=== PATIENT | female | born 1995 | race Caucasian/White ===

== ENCOUNTER 2016-11-15 14:13 | Emergency (ER) | payer BC, OTHER ==
[~2016-11-15] VITALS: Ht 172.7 cm; Wt 90.7 kg
--- NOTE | 2016-11-15 14:35 | ED Fall/Injury ---
General Chief Complaint: Trauma-Non Activation Stated Complaint: FALL/HEAD INJURY Nursing Triage Note: patient reports getting tripped up by dog and falling back on stairs. patient unsure of LOC. patient reports R ankle pain and back pain. denies head or neck pain Source: patient Exam Limitations: no limitations History of Present Illness Time seen by provider: 14:20 Initial Comments Here with complaint of head injury, back pain and right ankle pain after falling when walking down the steps. She states she was coming down the stairs and her dog hit the back of her legs and she fell backwards and hit her head and upper back between the shoulder blades. She also apparently rolled her right ankle. She is unsure she was knocked unconscious but then thinks that she may have been. She did have nausea. EMS did give her 4 mg of Zofran IV in route which did help the nausea. Denies vomiting or seizures. The father states that he found her drooling a little bit and laying on her side. Patient denies any neck pain or other injury. Occurred: just prior to arrival Severity: moderate Injuries/Pain Location: head, back, lower extremity Context: tripped Loss of Consciousness: unsure Associated Symptoms (Fall): No Abdominal Pain, No Chest Pain, Headache, Nausea/ Vomiting, No Seizures, No Shortness of Air, No Vision Changes Allergies and Home Medications Allergies Coded Allergies: No Known Drug Allergies (Unverified , 11/15/16) Home Medications No Active Prescriptions or Reported Meds Constitutional: see HPI, No chills, No fever Eyes: No Symptoms Reported Ears, Nose, Mouth, Throat: no symptoms reported Respiratory: no symptoms reported Cardiovascular: no symptoms reported Musculoskeletal: see HPI, back pain Skin: No lesions, No rash Psychiatric/Neurological: See HPI, Headache Past Cxnggbe-Gsrtxa-Fwyqux Hx Patient Social History Alcohol Use: Denies Use Recreational Drug Use: No Smoking Status: Never a Smoker Recent Foreign Travel: No Contact w/Someone Who Travel: No Recent Infectious Disease Expo: No Recent Hopitalizations: No Immunizations Up To Date Tetanus Booster (TDap): Less than 5yrs Surgeries HX Surgeries: No Respiratory Hx Respiratory Disorders: No Cardiovascular Hx Cardiac Disorders: Yes Cardiac Disorders: Heart Murmur Neurological Hx Neurological Disorders: Yes Neurological Disorders: Headaches /Migraines Genitourinary Hx Genitourinary Disorders: No Gastrointestinal Hx Gastrointestinal Disorders: No Musculoskeletal Hx Musculoskeletal Disorders: Yes Musculoskeletal Disorders: Scoliosis Endocrine Hx Endocrine Disorders: No HEENT HX ENT Disorders: No Cancer Hx Cancer: No Psychosocial Hx Psychiatric Problems: No Reviewed Nursing Assessment Reviewed/Agree w Nursing PMH: Yes Family Medical History Significant Family History: Heart Disease, Cancer, Diabetes Physical Exam Vital Signs Vital Sign - Last 12Hours 11/15/16 14:15 Temp 98.8 Pulse 86 Resp 20 B/P (MAP) 135/98 Pulse Ox 100 O2 Delivery Room Air Capillary Refill : Less Than 3 Seconds General Appearance: WD/WN, no apparent distress HEENT: PERRL/EOMI, TMs normal, pharynx normal Neck: full range of motion, supple Cardiovascular: regular rate, rhythm, no murmur Respiratory: lungs clear, normal breath sounds Gastrointestinal: non tender, soft Back: normal inspection, no CVA tenderness, no vertebral tenderness, other ( tenderness just lateral to the mid thoracic spine at approximately T6) Extremities: normal range of motion, no pedal edema, other (mild tenderness to the lateral aspect of the right ankle with retained range of motion) Neurologic/Psychiatric: alert, normal mood/affect, oriented x 3 Skin: normal color, warm/dry Geno Coma Score Best Eye Response: (4) Open Spontaneously Best Verbal Response: (5) Oriented Best Motor Response: (6) Obeys Commands Progress/Results/Core Measures Results/Orders My Orders Orders - CHANDRAKANT CHAVEZ MD Ct Head Wo (11/15/16 14:19) Ankle, Right, 3 Views (11/15/16 14:19) T-Spine 3v-Ap, Lat, Swimmers (11/15/16 14:19) Vital Signs/I&O Vital Sign - Last 12Hours 11/15/16 14:15 Temp 98.8 Pulse 86 Resp 20 B/P (MAP) 135/98 Pulse Ox 100 O2 Delivery Room Air Blood Pressure Mean: 110 Progress Note : Progress Note Seen and evaluated. IV by EMS. CT head and x-ray of the right ankle and thoracic spine ordered. Patient declined pain medicine. Monitor patient. 1535 : No acute findings. Discharged home with return precautions. Patient verbalize understanding instructions and agreement with plan. Diagnostic Imaging Diagonstic Imaging: CT Plain Films/CT/US/NM/MRI: head Comments VIA [facility]. [place], [place] NAME: LILIYA ALICEA V [facility] REC#: [id number] PT STATUS: REG ER : 1995 PHYSICIAN: CHANDRAKANT CHAVEZ MD ADMIT DATE: 11/15/16/ER Draft Date of Exam:11/15/16 CT HEAD WO CLINICAL INDICATION: Patient fell and struck back of head on concrete. Patient has headache and right eye is fuzzy. EXAM: Axial CT scan of the brain performed without IV contrast. COMPARISON: None. FINDINGS: There is no evidence of acute cerebral infarct, intracranial hemorrhage, or gross mass effect. There is normal [place]-white matter distinction. The brain parenchymal volume appears appropriate for patient's age. There is no significant midline shift or herniation. There is no evidence of hydrocephalus. The basal cisterns are unremarkable. The skull, extracranial soft tissue, and orbits are unremarkable. The paranasal sinuses are unremarkable. IMPRESSION: Unremarkable CT scan of the brain. Dictated on workstation # [id number] Dict: 11/15/16 1437 Trans: 11/15/16 1442 [id number] Interpreted by: MARTINE ALVAREZ MD Electronically signed by: Diagonstic Imaging: Xray Plain Films/CT/US/NM/MRI: ankle Diagonstic Imaging: Xray Plain Films/CT/US/NM/MRI: other (thoracic spine) Comments NAME: LILIYA ALICEA V [facility] REC#: [id number] PT STATUS: REG ER : 1995 PHYSICIAN: CHANDRAKANT CHAVEZ MD ADMIT DATE: 11/15/16/ER Draft Date of Exam:11/15/16 T-SPINE 3V-AP, LAT, SWIMMERS INDICATION: Fell, hitting back while landing on concrete. Back pain. FINDINGS: Frontal, lateral, swimmer 's views of the thoracic spine demonstrate normal ossification. No fracture or subluxation is present. Disc spaces are of normal width. IMPRESSION: Normal thoracic spine. Dictated on workstation # [id number] Dict: 11/15/16 1449 Trans: 11/15/16 1515 ANUSHA [id number] Interpreted by: DANILO SIMON MD Electronically signed by: Departure Impression Impression: Primary Impression: Concussion Qualified Codes: S06.0X9A - Concussion with loss of consciousness of unspecified duration, initial encounter Additional Impressions: Contusion of thoracic wall Qualified Codes: S20.221A - Contusion of right back wall of thorax, initial encounter Right ankle sprain Qualified Codes: S93.401A - Sprain of unspecified ligament of right ankle, initial encounter Disposition: HOME, SELF-CARE Condition: Stable Departure-Patient Inst. Decision time for Depature: 15:25 Referrals: NO,LOCAL PHYSICIAN (PCP/Family) Primary Care Physician Patient Instructions: Concussion, Adult (DC) Add. Discharge Instructions: All discharge instructions reviewed with patient and/or family. Voiced understanding. You should rest tonight. You should stay at a place that has a person that can stay with you. You may take ibuprofen 800 mg every 8 hours as needed for pain. You may take Tylenol 1000 mg every 8 hours as needed for pain. Drink plenty of fluids. Off work today and tomorrow. Return for worse pain, fever, vomiting , vision or balance problems, weakness, coordination problems or other concerns as needed. Follow-up with your DrGabrielle in a few days for recheck as needed. Scripts No Active Prescriptions or Reported Meds Work/School Note: Work Release Form Date Seen in the Emergency Department: Nov 15, 2016 Return to Work: Nov 17, 2016 Restrictions: No Restrictions CHANDRAKANT CHAVEZ MD Nov 15, 2016 14:35
--- NOTE | 2016-11-15 14:43 | Diagnostic Imaging Report ---
CLINICAL INDICATION: Patient fell and struck back of head on concrete. Patient has headache and right eye is fuzzy. EXAM: Axial CT scan of the brain performed without IV contrast. COMPARISON: None. FINDINGS: There is no evidence of acute cerebral infarct, intracranial hemorrhage, or gross mass effect. There is normal [place]-white matter distinction. The brain parenchymal volume appears appropriate for patient's age. There is no significant midline shift or herniation. There is no evidence of hydrocephalus. The basal cisterns are unremarkable. The skull, extracranial soft tissue, and orbits are unremarkable. The paranasal sinuses are unremarkable. IMPRESSION: Unremarkable CT scan of the brain. Dictated by: Dictated on workstation # [id number]
--- NOTE | 2016-11-15 15:16 | Diagnostic Imaging Report ---
INDICATION: Fell, hitting back while landing on concrete. Back pain. FINDINGS: Frontal, lateral, swimmer 's views of the thoracic spine demonstrate normal ossification. No fracture or subluxation is present. Disc spaces are of normal width. IMPRESSION: Normal thoracic spine. Dictated by: Dictated on workstation # [id number]
--- NOTE | 2016-11-15 15:21 | Diagnostic Imaging Report ---
INDICATION: Patient was sliding her dog out the back, fell, right ankle pain. FINDINGS: Three views of the right ankle demonstrate normal ossification. No fracture, dislocation or joint effusion is present. IMPRESSION: Negative right ankle. Dictated by: Dictated on workstation # [id number]
[2016-11-15 15:43] VITALS: BP 128/90
--- OUTSIDE RECORDS SUMMARY | 2016-12-18 14:31 | XMS REPORT | Continuity of Care Document ---
Author Author [facility] Organization [facility] Address Unknown Phone Unavailable Care Team Providers Care Motion Picture Set Grip Name Role Phone Taz Pisano PCP [phone] Source Comments Some departments are not documenting in the electronic medical record. If you do not see the information that you expected, contact Release of Information in the Health Information Management department at [phone] for further assistance in locating additional records.[facility] Active Allergies and Adverse Reactions No Known Allergies Current Medications Prescription Sig. Disp. Refills Start End Date Status Date buPROPion (WELLBUTRIN) 75 Take 75 mg by mouth twice Active mg tablet daily. Active Problems Problem Noted Date Ureteropelvic junction obstruction 11/27/2015 UPJ (ureteropelvic junction) obstruction 10/15/2015 Social History Tobacco Use Types Packs/Day Years Used Date Never Smoker Smokeless Tobacco: Never Used Alcohol Use Drinks/Week oz/Week Comments No 0 Standard 0.0 drinks or equivalent Last Filed Vital Signs Vital Sign Reading Time Taken Blood Pressure 133/86 02/10/2016 2:23 PM CDT Pulse 59 02/10/2016 2:23 PM CDT Temperature 36.7 C (98 F) 11/28/2015 11:13 AM CDT Respiratory Rate - - Height 1.702 m (5' 7") 02/10/2016 2:23 PM CDT Weight 87.726 kg (193 lb 6.4 oz) 02/10/2016 2:23 PM CDT Body Mass Index 30.28 02/10/2016 2:23 PM CDT Oxygen Saturation 97% 11/28/2015 11:13 AM CDT Plan of Care Health Maintenance Due Date Last Done Comments Physical (Comprehensive) 2003 Exam Hpv Vaccines (#1) 2007 Pertussis Vaccine 2007 Tetanus Vaccine 2013 Influenza Vaccine 04/14/2017 Results from Last 3 Months Not on file
--- OUTSIDE RECORDS SUMMARY | 2016-12-18 14:31 | XMS REPORT | Continuity of Care Document ---
Author Author [facility] Organization [facility] Address Unknown Phone Unavailable Allergies Active Description Code Type Severity Reaction Onset Reported/Identified Relationship to Patient Clinical Status Yes No Known Drug Allergies [id number] Drug Allergy Unknown N/ A 11/15/2016 Medications Problems Date Dx Coded Attending Type Code Diagnosis Diagnosed By 02/19/2015 EBONI NICHOLE MD Ot 782.0 SKIN SENSATION DISTURB 02/19/2015 EBONI NICHOLE MD Ot 786.50 CHEST PAIN NOS 02/19/2015 EBONI NICHOLE MD Ot 786.59 CHEST PAIN NEC 11/15/2016 CHANDRAKANT CHAVEZ MD, Ot S06.0X0A CONCUSSION WITHOUT LOSS OF CONSCIOUSNESS 11/15/2016 CHANDRAKANT CHAVEZ MD, Ot S09.90XA UNSPECIFIED INJURY OF HEAD, INITIAL ENCO 11/15/2016 CHANDRAKANT CHAVEZ MD Ot S20.221A CONTUSION OF RIGHT BACK WALL OF THORAX, 11/15/2016 CHANDRAKANT CHAVEZ MD Ot S93.401A SPRAIN OF UNSPECIFIED LIGAMENT OF RIGHT 11/15/2016 CHANDRAKANT CHAVEZ MD Ot W10.9XXA FALL (ON) (FROM) UNSPECIFIED STAIRS AND 11/15/2016 CHANDRAKANT CHAVEZ MD Ot Y92.[address] IN UNSP NON-INSTITUT ( PRIVATE 11/15/2016 CHANDRAKANT CHAVEZ MD Ot Y99.8 OTHER EXTERNAL CAUSE STATUS 11/16/2016 CHANDRAKANT CHAVEZ MD, Ot S06.0X0A CONCUSSION WITHOUT LOSS OF CONSCIOUSNESS 11/16/2016 CHANDRAKANT CHAVEZ MD Ot S09.90XA UNSPECIFIED INJURY OF HEAD, INITIAL ENCO 11/16/2016 CHANDRAKANT CHAVEZ MD Ot S20.221A CONTUSION OF RIGHT BACK WALL OF THORAX, 11/16/2016 CHANDRAKANT CHAVEZ MD Ot S93.401A SPRAIN OF UNSPECIFIED LIGAMENT OF RIGHT 11/16/2016 CHANDRAKANT CHAVEZ MD Ot W10.9XXA FALL (ON) (FROM) UNSPECIFIED STAIRS AND 11/16/2016 CHANDRAKANT CHAVEZ MD Ot Y92.[address] IN UNSP NON-INSTITUT ( PRIVATE 11/16/2016 CHANDRAKANT CHAVEZ MD Ot Y99.8 OTHER EXTERNAL CAUSE STATUS 11/17/2016 CHANDRAKANT CHAVEZ MD Ot F17.210 NICOTINE DEPENDENCE, CIGARETTES, UNCOMPL 11/17/2016 CHANDRAKANT CHAVEZ MD Ot G44.309 POST-TRAUMATIC HEADACHE, UNSPECIFIED , NO 11/17/2016 CHANDRAKANT CHAVEZ MD Ot M54.2 CERVICALGIA 11/18/2016 CHANDRAKANT CHAVEZ MD Ot G44.309 POST-TRAUMATIC HEADACHE, UNSPECIFIED , NO 11/18/2016 CHANDRAKANT CHAVEZ MD Ot M54.2 CERVICALGIA 11/18/2016 CHANDRAKANT CHAVEZ MD Ot F17.210 NICOTINE DEPENDENCE, CIGARETTES, UNCOMPL 11/18/2016 CHANDRAKANT CHAVEZ MD Ot G44.309 POST-TRAUMATIC HEADACHE, UNSPECIFIED , NO 11/18/2016 CHANDRAKANT CHAVEZ MD Ot M54.2 CERVICALGIA Procedures Results Encounters ACCT No. Visit Date/Time Discharge Status Pt. Type Provider Facility Loc./Unit Complaint [id number] 11/17/2016 08:15:00 2016 10:13:00 DIS Emergency CHANDRAKANT CHAVEZ MD [facility] ER FALL/HEAD INJURY [id number] 11/15/2016 14:15:00 2016 15:43:00 DIS Emergency CHANDRAKANT CHAVEZ MD [facility] ER FALL/HEAD INJURY [id number] 02/19/2015 19:55:00 2014 22:45:00 DIS Emergency EBONI NICHOLE MD [facility] ER CP
== END 2016-11-15 15:43 | disposition home or self-care (01) ==
LOC: EDUNIT# 14:13 → ER 14:15
DX: S06.0X0A Concussion without loss of consciousness, initial encounter (principal); S93.401A Sprain of unspecified ligament of right ankle, initial encounter; S20.221A Contusion of right back wall of thorax, initial encounter; W10.9XXA Fall (on) (from) unspecified stairs and steps, initial encounter; Y92.009 Unspecified place in unspecified non-institutional (private) residence as the place of occurrence of the external cause; Y99.8 Other external cause status
CPT/HCPCS: 70450; 72072; 73610; 99283

== ENCOUNTER 2016-11-17 08:13 | Emergency (ER) | payer BC, OTHER ==
[~2016-11-17] VITALS: Ht 172.7 cm; Wt 90.7 kg
--- NOTE | 2016-11-17 08:42 | ED Head Injury ---
General Chief Complaint: Head/Cervical Problems Stated Complaint: FALL/HEAD INJURY Source: patient Exam Limitations: no limitations History of Present Illness Time seen by provider: 08:29 Initial Comments Here with report of persistent headache after fall and head injury 2 days ago. Seen here at that time and had CT scan done. No acute findings at that time. States was doing a little better yesterday but this morning woke up with right- sided neck pain and felt blurriness in the right eye. She has been taking Tylenol and ibuprofen and that has helped. She reports eating and drinking okay. Denies balance problems. Pain on the right side of the neck is from behind the right ear down to the right shoulder. Denies weakness. Occurred: other (2 days ago) Severity: moderate Location: occipital, parietal Method of Injury: fell Loss of Consciousness: unsure Associated Systoms: No Chest Pain, No Fever/Chills, No Nausea/Vomiting, No Shortness of Air, No Weakness Allergies and Home Medications Allergies Coded Allergies: No Known Drug Allergies (Unverified , 11/15/16) Home Medications No Active Prescriptions or Reported Meds Constitutional: see HPI, No chills, No fever Eyes: No Symptoms Reported Ears, Nose, Mouth, Throat: no symptoms reported Respiratory: no symptoms reported Cardiovascular: no symptoms reported Gastrointestinal: no symptoms reported Genitourinary: no symptoms reported Musculoskeletal: see HPI, muscle pain, neck pain Skin: no symptoms reported Psychiatric/Neurological: Headache, Denies Weakness Hematologic/Lymphatic: No Symptoms Reported All Other Systems Reviewed Negative Unless Noted: Yes Past Misvkde-Ejwonp-Nneoof Hx Patient Social History Alcohol Use: Denies Use Recreational Drug Use: No Smoking Status: Current Everyday Smoker Recent Foreign Travel: No Contact w/Someone Who Travel: No Recent Hopitalizations: No Immunizations Up To Date Tetanus Booster (TDap): Less than 5yrs Surgeries HX Surgeries: No Respiratory Hx Respiratory Disorders: No Cardiovascular Hx Cardiac Disorders: Yes Cardiac Disorders: Heart Murmur Neurological Hx Neurological Disorders: Yes Neurological Disorders: Headaches /Migraines Genitourinary Hx Genitourinary Disorders: No Gastrointestinal Hx Gastrointestinal Disorders: No Musculoskeletal Hx Musculoskeletal Disorders: Yes Musculoskeletal Disorders: Scoliosis Endocrine Hx Endocrine Disorders: No HEENT HX ENT Disorders: No Cancer Hx Cancer: No Psychosocial Hx Psychiatric Problems: No Reviewed Nursing Assessment Reviewed/Agree w Nursing PMH: Yes Family Medical History Significant Family History: Heart Disease, Cancer, Diabetes Physical Exam Vital Signs Vital Sign - Last 12Hours 11/17/16 08:17 Temp 98.0 Pulse 56 Resp 18 B/P (MAP) 123/81 Pulse Ox 100 O2 Delivery Room Air Capillary Refill : General Appearance: WD/WN, no apparent distress HEENT: PERRL/EOMI, TMs normal, pharynx normal Neck: full range of motion, supple, tender lateral (right-sided) Cardiovascular: regular rate, rhythm, no murmur Respiratory: lungs clear, normal breath sounds Gastrointestinal: non tender, soft Back: normal inspection, no vertebral tenderness Extremities: non-tender, normal inspection Psychiatric: alert, oriented x 3 Crainal Nerves: normal hearing, normal speech, PERRL Motor/Sensory: no motor deficit, no sensory deficit Skin: normal color, warm/dry Moriah Coma Score Best Eye Response: (4) Open Spontaneously Best Verbal Response: (5) Oriented Best Motor Response: (6) Obeys Commands Progress/Results/Core Measures Results/Orders My Orders Orders - CHANDRAKANT CHAVEZ MD Ct Head/Cervical Spine Wo (11/17/16 08:27) Vital Signs/I&O Vital Sign - Last 12Hours 11/17/16 08:17 Temp 98.0 Pulse 56 Resp 18 B/P (MAP) 123/81 Pulse Ox 100 O2 Delivery Room Air Progress Note : Progress Note Seen and evaluated. CT head and neck ordered. Patient declined pain medicine currently and states she would like to see if her Tylenol we'll work first. Monitor patient. Diagnostic Imaging Diagonstic Imaging: CT Plain Films/CT/US/NM/MRI: c-spine, head Comments NAME: LILIYA ALICEA V [facility] REC#: [id number] PT STATUS: REG ER : 1995 PHYSICIAN: CHANDRAKANT CHAVEZ MD ADMIT DATE: 11/17/16/ER Draft Date of Exam:11/17/16 CT HEAD/CERVICAL SPINE WO CLINICAL INDICATION: Patient is status post fall, hitting head on concrete. Patient is having right eye vision issues and headache. EXAM: Head CT without IV contrast. Axial CT scan of the cervical spine with sagittal and coronal reformations. COMPARISON: Head CT without IV contrast dated 11/15/2016. FINDINGS: Head CT: There is no evidence of acute cerebral infarct, intracranial hemorrhage, or gross mass effect. There is normal [place]-white matter distinction. The brain parenchymal volume appears appropriate for patient's age. There is no significant midline shift or herniation. There is no evidence of hydrocephalus. The basal cisterns are unremarkable. The skull, extracranial soft tissue, and orbits are unremarkable. The paranasal sinuses are unremarkable. Cervical spine: There is no evidence of acute cervical spine fracture or dislocation. Intervertebral disc heights and vertebral body heights are well maintained. There is small left paracentral disc spurs which cause no significant central spinal canal or neural foramen narrowing. There is no significant prevertebral soft tissue swelling. Lung apices are clear. IMPRESSION: 1: Unremarkable CT scan of the brain. 2: There is no evidence of acute cervical spine fracture or dislocation. Dictated on workstation # [id number] Dict: 11/17/16 0933 Trans: 11/17/16 0945 [facility] [id number] Interpreted by: MARTINE ALVAREZ MD Electronically signed by: Reviewed: Reviewed by Me Departure Impression Impression: Primary Impression: Concussion with brief (less than one hour) loss of consciousness Disposition: HOME, SELF-CARE Condition: Stable Departure-Patient Inst. Decision time for Depature: 09:57 Referrals: BOBBY SEYMOUR,LOCAL PHYSICIAN (PCP) Primary Care Physician Patient Instructions: Concussion, Adult (DC), Neck Sprain (DC) Add. Discharge Instructions: All discharge instructions reviewed with patient and/or family. Voiced understanding. You may continue Tylenol and ibuprofen as previously discussed. Follow up with Dr. Seymour next 11/22/16. Call his office today for appointment. You will need to continue rest for the next 2 days. Return for worse pain, fever, vomiting, weakness, breathing problems or other concerns as needed. Scripts Cyclobenzaprine HCl (Cyclobenzaprine HCl) 10 Mg Tablet 10 MG PO Q8H Y for SPASMS, #15 TAB 0 Refills Prov: CHANDRAKANT CHAVEZ MD 11/17/16 Copy Copies To 1: BOBBY SEYMOUR TIMOTHY D MD Nov 17, 2016 08:42
--- NOTE | 2016-11-17 09:46 | Diagnostic Imaging Report ---
CLINICAL INDICATION: Patient is status post fall, hitting head on concrete. Patient is having right eye vision issues and headache. EXAM: Head CT without IV contrast. Axial CT scan of the cervical spine with sagittal and coronal reformations. COMPARISON: Head CT without IV contrast dated 11/15/2016. FINDINGS: Head CT: There is no evidence of acute cerebral infarct, intracranial hemorrhage, or gross mass effect. There is normal [place]-white matter distinction. The brain parenchymal volume appears appropriate for patient's age. There is no significant midline shift or herniation. There is no evidence of hydrocephalus. The basal cisterns are unremarkable. The skull, extracranial soft tissue, and orbits are unremarkable. The paranasal sinuses are unremarkable. Cervical spine: There is no evidence of acute cervical spine fracture or dislocation. Intervertebral disc heights and vertebral body heights are well maintained. There is small left paracentral disc spurs which cause no significant central spinal canal or neural foramen narrowing. There is no significant prevertebral soft tissue swelling. Lung apices are clear. IMPRESSION: 1: Unremarkable CT scan of the brain. 2: There is no evidence of acute cervical spine fracture or dislocation. Dictated by: Dictated on workstation # [id number]
[2016-11-17] MEDS ORDERED: CYCL10TA9 PO (10:03)
[2016-11-17 10:10] VITALS: BP 110/65
--- OUTSIDE RECORDS SUMMARY | 2016-12-18 20:55 | XMS REPORT | Continuity of Care Document ---
Author Author [facility] Organization [facility] Address Unknown Phone Unavailable Care Team Providers Care Dry Goods Inspector Name Role Phone Taz Pisano PCP [phone] Source Comments Some departments are not documenting in the electronic medical record. If you do not see the information that you expected, contact Release of Information in the Health Information Management department at [phone] for further assistance in locating additional records.[facility] Active Allergies and Adverse Reactions No Known [...]
--- OUTSIDE RECORDS SUMMARY | 2016-12-18 20:55 | XMS REPORT | Continuity of Care Document ---
Author Author [facility] Organization [facility] Address Unknown Phone Unavailable Allergies Active Description Code Type Severity Reaction Onset Reported/Identified Relationship to Patient Clinical Status Yes No Known Drug Allergies [id number] Drug Allergy Unknown N/ A 11/15/2016 Medications [...] UNSPECIFIED INJURY OF HEAD, INITIAL ENCO 11/15/2016 CHADNRAKANT CHAVEZ MD Ot S20.221A CONTUSION OF RIGHT [...] Status Pt. Type Provider Facility Loc./Unit Complaint [id number] 11/17/2016 08:15:00 2016 10:13:00 DIS Emergency CHANDRAKANT CHAVEZ MD [facility] ER FALL/HEAD INJURY [id number] 11/15/2016 14:15:00 2016 15:43:00 DIS Emergency CHANDRAKANT CHAVEZ MD [facility] ER FALL/HEAD INJURY [id number] 02/19/2015 19:55:00 2014 22:45:00 DIS Emergency EBONI NICHOLE MD [facility] ER CP
== END 2016-11-17 10:13 | disposition home or self-care (01) ==
LOC: EDUNIT# 08:13 → ER 08:15
DX: G44.309 Post-traumatic headache, unspecified, not intractable (principal); M54.2 Cervicalgia; F17.210 Nicotine dependence, cigarettes, uncomplicated
CPT/HCPCS: 36430; 70450; 72125